=== PATIENT | male | born 1965 | race Caucasian/White ===

== ENCOUNTER 2020-07-24 11:52 | Inpatient (IN) ==
[2020-07-24] MEDS ORDERED: dexAMETHasone**PF** 10 MG/ML VIAL IV ONE (12:49)
[2020-07-24] MEDS ORDERED: ACETAMINOPHEN 1,000 MG/100 ML VIAL IV STA (12:49)
[2020-07-24] MEDS ORDERED: ALBUT/IPRATROP 3MG/0.5MG NEB 3 ML VIAL NEB STA (12:49)
[2020-07-24] MEDS ORDERED: SODIUM CHLORIDE 0.9% 1000ML 1,000 ML IV SCH (13:00)
--- NOTE | 2020-07-24 13:42 | XRay Report ---
XR chest 1V portable CLINICAL HISTORY: Cough. +Covid. Bibasilar crackles COMPARISON STUDY: 02/07/2010 FINDINGS: The heart is mildly enlarged. There are bilateral pulmonary airspace opacities consistent w ith a multifocal pneumonia. There are no pleural effusions.[ IMPRESSION: Bilateral pulmonary airspace opacities consistent with a multifocal pneumonia. ACT 112: Negative or not required by law. Electronically signed by: Alberto Chu M.D. 07/24/2020 1:40 PM
--- NOTE | 2020-07-24 14:25 | Emergency Department Note ---
History of Present Illness General Chief complaint: Shortness of Breath/Dyspnea Stated complaint: SOB, FEVER, COVID + ON 07-17-20 Time Seen by Provider: 07/24/20 12:29 History of Present Illness Maximum Pain Intensity: 0 This is a 54-year-old male presenting to the emergency department for evaluation of fever, cough, and shortness of breath worsening over the past few days. The patient was positive for COVID-19 on 07/17/2020. He feels like he is unable to breathe with any movement, especially with walking. The patient's is ill with similar symptoms and she is being admitted to this facility. The patient has been taking [id number] Advil and Tylenol for fever symptoms as well as Mucinex and Sudafed. His cough is worsening and he states that his pulse ox at home is usually in the low 90s, but will drop into the 70s with walking. The patient does have a history of hypertension but no other cardiopulmonary disease. He does not have any recent travel history. He rates his discomfort 8/10 with coughing. Home Medications Medication Instructions Recorded Confirmed Type allopurinol 300 mg PO DAILY 07/24/20 07/24/20 History benzonatate 100 mg PO TID PRN 07/24/20 07/24/20 History fluticasone propionate 2 spray INTRANASAL DAILY PRN 07/24/20 07/24/20 History lisinopril 10 mg PO DAILY 07/24/20 07/24/20 History Allergies Allergy/AdvReac Type Severity Reaction Status Date / Time aspirin AdvReac Unknown VOMITING Unverified 07/24/20 14:17 Past Med/Surg History Medical History (Updated 07/25/20 @ 12:45 by Sonu Harris PA-C) COVID-19 Positive test 07/17/2020 Gout Hypertension VELAZQUEZ (nonalcoholic steatohepatitis) Surgical History History of lithotripsy Family History Father Heart disease Social History Smoking Status: Never smoker Second Hand Exposure: No; Do You Dip or Chew Tobacco: No; Tobacco Cessation Education Requested by Patient: No Hx Alcohol Use: Yes Hx Substance Use: No Preferred Language: Macedonian Communication Ability: Effective Sports Trainer Required: No Beliefs That Will Affect Care: None Current Living Situation: Spouse Other Information That Helps Us Care for You: No Feels Safe at Home: Yes Safety Concerns: Feels Safe At This Time Assistive Devices: Oxygen - Continuous Review of Systems A total of 10 systems reviewed and were otherwise negative Physical Exam Vital Signs Vital Signs - 24 hr 07/24/20 13:40 07/24/20 14:09 07/24/20 14:15 Pulse Rate 86 Pulse Rate [Apical] 76 Pulse Rate [Exercises] Pulse Rate [Recovery] Pulse Rate [Resting] Pulse Rate from SpO2 Sensor 87 Respiratory Rate 18 33 H Respiratory Rate [Exercises] Respiratory Rate [Recovery] Respiratory Rate [Resting] Respiratory Effort / Characteristics Spontaneous Blood Pressure 148/72 H Blood Pressure Mean 97 Pulse Oximetry 93 93 92 Pulse Oximetry [Exercises] Pulse Oximetry [Recovery] Pulse Oximetry [Resting] Oxygen Delivery Method Room Air Room Air Oxygen Flow Rate 07/24/20 14:30 07/24/20 15:05 07/24/20 15:30 Pulse Rate 88 85 Pulse Rate [Apical] Pulse Rate [Exercises] 94 H Pulse Rate [Recovery] 80 Pulse Rate [Resting] 78 Pulse Rate from SpO2 Sensor 84 Respiratory Rate 25 H 27 H Respiratory Rate [Exercises] 28 H Respiratory Rate [Recovery] 24 Respiratory Rate [Resting] 20 Respiratory Effort / Characteristics Blood Pressure 136/84 Blood Pressure Mean 101 Pulse Oximetry 96 Pulse Oximetry [Exercises] 89 L Pulse Oximetry [Recovery] 94 Pulse Oximetry [Resting] 93 Oxygen Delivery Method Room Air Nasal Cannula Oxygen Flow Rate 2 VITALS: Vitals are noted on the nurse's note and reviewed by myself. Vital signs stable. GENERAL: Moderately ill-appearing, white male with notable dry cough. HEAD: Normocephalic atraumatic. NECK: Supple without nuchal rigidity. No lymphadenopathy. No thyromegaly. Cervical spine is nontender. HEART: Regular rate and rhythm without murmurs gallops or rubs. LUNGS: Diffuse wheezing and rhonchi throughout worse in the bibasilar regions ABDOMEN: Positive normal bowel sounds x 4. Soft, nontender, without masses or organomegaly. No guarding or rebound tenderness. MUSCULOSKELETAL: No muscle atrophy, erythema, or edema noted. Full range of motion in all extremities. NEURO: Patient was alert and oriented to person place and time. CN II through XII grossly intact. Course Administered Medications Allopurinol (Allopurinol 300 Mg Tab) 300 mg PO DAILY JEANNE Stop: 08/24/20 08:59 Last Admin: 07/25/20 09:38 Dose: 300 mg Documented by: [id number] Enoxaparin Sodium (Enoxaparin Inj 40 Mg/0.4 Ml Syr) 40 mg SQ Q12H JEANNE Stop: 08/23/20 19:59 Last Admin: 07/25/20 09:38 Dose: 40 mg Documented by: [id number] Admin: 07/24/20 21:09 Dose: 40 mg Documented by: [id number] Dexamethasone 6 mg/ Syringe 1.5 mls @ 1 mls/min IV DAILY JEANNE Stop: 08/04/20 08:59 Last Admin: 07/25/20 09:38 Dose: 1 mls/min Documented by: [id number] Lisinopril (Lisinopril 10 Mg Tab) 10 mg PO DAILY JEANNE Stop: 08/24/20 08:59 Last Admin: 07/25/20 09:38 Dose: 10 mg Documented by: [id number] Sodium Chloride (Sodium Chloride 0.9% 10ml Flush) 30 ml IV DAILY@2100 [facility] Stop: 07/28/20 21:01 Last Admin: 07/24/20 21:09 Dose: 30 ml Documented by: [id number] Discontinued Medications Albuterol (Albut/Ipratrop 3mg/0.5mg Neb 3 Ml Vial) 3 ml NEB NOW STA Stop: 07/24/20 12:50 Last Admin: 07/24/20 13:38 Dose: 3 ml Documented by: [id number] Dexamethasone Sodium Phosphate (DexamethasonePf 10 Mg/Ml Vial) 10 mg IV NOW ONE Stop: 07/24/20 12:50 Last Admin: 07/24/20 15:06 Dose: 10 mg Documented by: [id number] Sodium Chloride (Nss 1000ml) 1,000 mls @ 999 mls/hr IV .Q1H1M JEANNE Stop: 07/24/20 14:00 Last Infusion: 07/24/20 16:24 Dose: 0 mls/hr Documented by: [id number] Admin: 07/24/20 15:07 Dose: 999 mls/hr Documented by: [id number] Acetaminophen (Ofirmev) 1,000 mg in 100 mls @ 400 mls/hr IV NOW STA Stop: 07/24/20 13:03 Last Infusion: 07/24/20 15:30 Dose: 0 mls/hr Documented by: [id number] Admin: 07/24/20 15:06 Dose: 400 mls/hr Documented by: [id number] Remdesivir 200 mg/ Sodium (Chloride) 250 mls @ 125 mls/hr IV ONE STA; Protocol Stop: 07/24/20 18:40 Last Infusion: 07/24/20 21:11 Dose: 0 mls/hr Documented by: [id number] Admin: 07/24/20 18:18 Dose: 125 mls/hr Documented by: [id number] Medical Decision Making Differential Diagnosis Differential diagnosis: Etiologies such as viral syndrome, otitis, pharyngitis, pneumonia, influenza, meningitis, urinary tract infection, septic arthritis, soft tissue infectious process, intra-abdominal process, sepsis, bacteremia, as well as others were entertained. Laboratory Data Result diagrams: 07/25/20 06:53 07/25/20 06:53 Lab Results 07/24/20 07/24/20 07/24/20 Range/Units 14:15 14:15 14:41 WBC 5.82 (4.8-10.8) K/uL RBC 5.29 (4.7-6.1) M/uL Hgb 15.5 (14.0-18.0) g/dL Hct 44.0 (42-52) % MCV 83.2 (80-100) fL MCH 29.3 (25-34) pg MCHC 35.2 (32-36) g/dL RDW Std Deviation 39.1 (36.4-46.3) fL RDW Coeff of Thuy 13.0 (11.5-14.5) % Plt Count 235 (130-400) K/uL MPV 9.4 (7.4-10.4) fL Immature Gran % (Auto) 0.5 % Neut % (Auto) 71.8 % Lymph % (Auto) 13.6 % Gosper % (Auto) 13.7 % Eos % (Auto) 0.2 % Baso % (Auto) 0.2 % Neut # (Auto) 4.18 (1.4-6.5) K/uL Lymph # (Auto) 0.79 L (1.2-3.4) K/uL Gosper # (Auto) 0.80 H (0.11-0.59) K/uL Eos # (Auto) 0.01 (0-0.5) K/uL Baso # (Auto) 0.01 (0-0.2) K/uL Immature Gran # (Auto) 0.03 H (0.00-0.02) K/uL ESR (0-14) mm/hr D-Dimer (0-500) ug/L FEU Sodium (136-145) mmol/L Potassium (3.5-5.1) mmol/L Chloride (98-107) mmol/L Carbon Dioxide (21-32) mmol/L Anion Gap (3-11) BUN (7-18) mg/dl Creatinine (0.6-1.4) mg/dl Est Cr Clr Drug Dosing ml/min Est GFR ( Amer) Est GFR (Non-Af Amer) BUN/Creatinine Ratio (10-20) Glucose (70-99) mg/dl Calcium (8.5-10.1) mg/dl Total Bilirubin (0.2-1) mg/dl AST (15-37) U/L ALT (12-78) U/L Alkaline Phosphatase (45-117) U/L Troponin I (0-0.045) ng/ml C-Reactive Protein (0-0.29) mg/dl NT-Pro-B Natriuret Pep (0-900) pg/ml Total Protein (6.4-8.2) gm/dl Albumin (3.4-5.0) gm/dl Globulin (2.5-4.0) gm/dl Albumin/Globulin Ratio (0.9-2) Procalcitonin (0-0.5) ng/ml COVID-19 Eval Order CovFluRsv at [facility] SARS-CoV-2 (PCR) POSITIVE A* (Negative) Influenza Type A (PCR) Negative (Neg) Influenza Type B (PCR) Negative (Neg) RSV (RT-PCR) Negative (Neg) 07/24/20 07/24/20 07/24/20 Range/Units 14:41 14:41 14:41 WBC (4.8-10.8) K/uL RBC (4.7-6.1) M/uL Hgb (14.0-18.0) g/dL Hct (42-52) % MCV (80-100) fL MCH (25-34) pg MCHC (32-36) g/dL RDW Std Deviation (36.4-46.3) fL RDW Coeff of Thuy (11.5-14.5) % Plt Count (130-400) K/uL MPV (7.4-10.4) fL Immature Gran % (Auto) % Neut % (Auto) % Lymph % (Auto) % Gosper % (Auto) % Eos % (Auto) % Baso % (Auto) % Neut # (Auto) (1.4-6.5) K/uL Lymph # (Auto) (1.2-3.4) K/uL Gosper # (Auto) (0.11-0.59) K/uL Eos # (Auto) (0-0.5) K/uL Baso # (Auto) (0-0.2) K/uL Immature Gran # (Auto) (0.00-0.02) K/uL ESR (0-14) mm/hr D-Dimer 440 (0-500) ug/L FEU Sodium 133 L (136-145) mmol/L Potassium 4.1 (3.5-5.1) mmol/L Chloride 102 (98-107) mmol/L Carbon Dioxide 22 (21-32) mmol/L Anion Gap 9.0 (3-11) BUN 21 H (7-18) mg/dl Creatinine 1.11 (0.6-1.4) mg/dl Est Cr Clr Drug Dosing 97.8 ml/min Est GFR ( Amer) 87.4 Est GFR (Non-Af Amer) 75.4 BUN/Creatinine Ratio 18.8 (10-20) Glucose 101 H (70-99) mg/dl Calcium 8.2 L (8.5-10.1) mg/dl Total Bilirubin 0.7 (0.2-1) mg/dl AST 117 H (15-37) U/L ALT 233 H (12-78) U/L Alkaline Phosphatase 79 (45-117) U/L Troponin I < 0.015 (0-0.045) ng/ml C-Reactive Protein 2.93 H (0-0.29) mg/dl NT-Pro-B Natriuret Pep 6 (0-900) pg/ml Total Protein 7.4 (6.4-8.2) gm/dl Albumin 3.1 L (3.4-5.0) gm/dl Globulin 4.3 H (2.5-4.0) gm/dl Albumin/Globulin Ratio 0.7 L (0.9-2) Procalcitonin 0.07 (0-0.5) ng/ml COVID-19 Eval Order SARS-CoV-2 (PCR) (Negative) Influenza Type A (PCR) (Neg) Influenza Type B (PCR) (Neg) RSV (RT-PCR) (Neg) 07/24/20 Range/Units 14:41 WBC (4.8-10.8) K/uL RBC (4.7-6.1) M/uL Hgb (14.0-18.0) g/dL Hct (42-52) % MCV (80-100) fL MCH (25-34) pg MCHC (32-36) g/dL RDW Std Deviation (36.4-46.3) fL RDW Coeff of Thuy (11.5-14.5) % Plt Count (130-400) K/uL MPV (7.4-10.4) fL Immature Gran % (Auto) % Neut % (Auto) % Lymph % (Auto) % Gosper % (Auto) % Eos % (Auto) % Baso % (Auto) % Neut # (Auto) (1.4-6.5) K/uL Lymph # (Auto) (1.2-3.4) K/uL Gosper # (Auto) (0.11-0.59) K/uL Eos # (Auto) (0-0.5) K/uL Baso # (Auto) (0-0.2) K/uL Immature Gran # (Auto) (0.00-0.02) K/uL ESR 50 H (0-14) mm/hr D-Dimer (0-500) ug/L FEU Sodium (136-145) mmol/L Potassium (3.5-5.1) mmol/L Chloride (98-107) mmol/L Carbon Dioxide (21-32) mmol/L Anion Gap (3-11) BUN (7-18) mg/dl Creatinine (0.6-1.4) mg/dl Est Cr Clr Drug Dosing ml/min Est GFR ( Amer) Est GFR (Non-Af Amer) BUN/Creatinine Ratio (10-20) Glucose (70-99) mg/dl Calcium (8.5-10.1) mg/dl Total Bilirubin (0.2-1) mg/dl AST (15-37) U/L ALT (12-78) U/L Alkaline Phosphatase (45-117) U/L Troponin I (0-0.045) ng/ml C-Reactive Protein (0-0.29) mg/dl NT-Pro-B Natriuret Pep (0-900) pg/ml Total Protein (6.4-8.2) gm/dl Albumin (3.4-5.0) gm/dl Globulin (2.5-4.0) gm/dl Albumin/Globulin Ratio (0.9-2) Procalcitonin (0-0.5) ng/ml COVID-19 Eval Order SARS-CoV-2 (PCR) (Negative) Influenza Type A (PCR) (Neg) Influenza Type B (PCR) (Neg) RSV (RT-PCR) (Neg) Imaging Data Radiologist's Impression: Chest X-Ray 07/24/20 12:49 XR chest 1V portable CLINICAL HISTORY: Cough. +Covid. Bibasilar crackles COMPARISON STUDY: 02/07/2010 FINDINGS: The heart is mildly enlarged. There are bilateral pulmonary airspace opacities consistent with a multifocal pneumonia. There are no pleural effusions.[ IMPRESSION: Bilateral pulmonary airspace opacities consistent with a multifocal pneumonia. ACT 112: Negative or not required by law. Electronically signed by: Alberto Chu M.D. 07/24/2020 1:40 PM ECG Data Attestation: I personally reviewed and interpreted this ECG as follows: Indication: + SOB/dyspnea Additional Comments: Normal sinus rhythm @[address] elevation Normal ECG When compared with ECG of 07-FEB-2010 13:14, No significant change was found MDM Narrative Physical exam and history were performed. Nursing notes, EMR, and Medication List were personally reviewed. Patient appears to have respiratory difficulty secondary to COVID-19. The patient does have a recent positive diagnosis of this. He appears somewhat ill on exam but not toxic. IV access was established and labs were obtained. Ambulatory pulse ox was performed and he did desaturate to 89%. He was placed on 2 L nasal cannula. The patient was given IV fluids, IV Tylenol, IV Decadron, and a DuoNeb. The patient's blood work is as above and was reviewed. He does not have a significantly elevated white blood cell count, gross anemia, or significant electrolyte imbalance. Troponin x1 is negative. Procalcitonin is normal. Urine is without gross evidence of infection. Covid is positive here today. X- ray was reviewed by myself and radiology and does show signs consistent with a viral pneumonia. Transaminases are elevated from an unknown source. Overall the patient does not appear well for discharge home. The case was discussed with the on-call hospitalist team who agreed to evaluate him here in the ER. Please see their dictation for further patient course, plan, and disposition. The chart was completed utilizing [employer] Speech Voice Recognition Software. Grammatical errors, random word insertions, pronoun errors, and incomplete sentences are an occasional consequence of this system due to software limitations, ambient noise, and hardware issues. Any formal questions or concerns about the content, text, or information contained within the body of this dictation should be directly addressed to the provider for clarification. . Impression & Plan Acute respiratory failure with hypoxia, Pneumonia due to COVID-19 virus, Trans aminitis Discharge Plan Visit Data Chief Complaint: Shortness of Breath/Dyspnea Stated Complaint: SOB, FEVER, COVID + ON 07-17-20 ED Provider: Shadi Quintero ED Midlevel Provider: Sonu Harris Discharge Problem: Acute respiratory failure with hypoxia, Pneumonia due to COVID-19 virus, Transaminitis Patient Disposition: Admitted As Inpatient Discharge Instructions Interventions: ED Discharge Assessment Last Done: 07/24/20 18:09
[2020-07-24 14:58] LABS: Basophils # (auto) 0.01 K/uL (0-0.2); Basophils % (auto) 0.2 %; Eosinophils # (auto) 0.01 K/uL (0-0.5); Eosinophils % (auto) 0.2 %; Hemoglobin 15.5 g/dL (14.0-18.0); Immature Granulocytes # (auto) 0.03 K/uL (0.00-0.02); Immature Granulocytes % (auto) 0.5 %; Lymphocytes # (auto) 0.79 K/uL (1.2-3.4); Lymphocytes % (auto) 13.6 %; Mean Corpuscular Hemoglobin 29.3 pg (25-34); Mean Corpuscular Hgb Conc 35.2 g/dL (32-36); Mean Corpuscular Volume 83.2 fL (80-100); Mean Platelet Volume 9.4 fL (7.4-10.4); Monocytes % (auto) 13.7 %; Neutrophils # (auto) 4.18 K/uL (1.4-6.5); Neutrophils % (auto) 71.8 %; Platelet Count 235 K/uL (130-400); RDW Standard Deviation 39.1 fL (36.4-46.3); Red Blood Count 5.29 M/uL (4.7-6.1); White Blood Count 5.82 K/uL (4.8-10.8)
--- NOTE | 2020-07-24 15:10 | Electrocardiogram Report ---
Test Reason : Blood Pressure : / mmHG Vent. Rate : 082 BPM Atrial Rate : 082 BPM P-R Int : 148 ms QRS Dur : 102 ms QT Int : 372 ms P-R-T Axes : 052 004 023 degrees QTc Int : 434 ms Normal sinus rhythm Normal ECG When compared with ECG of 07-FEB-2010 13:14, No significant change was found Confirmed by Santhosh Melchor ([id number]) on 07/24/2020 3:10:09 PM Referred By: REFERRED SELF Confirmed By:Santhosh Melchor
[2020-07-24 15:15] LABS: Alanine Aminotransferase 233 U/L (12-78); Albumin Level 3.1 gm/dl (3.4-5.0); Aspartate Aminotransferase 117 U/L (15-37); BUN Creatinine Ratio 18.8 (10-20); Blood Urea Nitrogen 21 mg/dl (7-18); Calcium 8.2 mg/dl (8.5-10.1); Carbon Dioxide 22 mmol/L (21-32); Chloride 102 mmol/L (98-107); Creatinine Clr Calc Pharmacy 97.8 ml/min; Est GFR (African American) 87.4; Est GFR (Non-African American) 75.4; Glucose 101 mg/dl (70-99); Potassium 4.1 mmol/L (3.5-5.1); Sodium 133 mmol/L (136-145)
[2020-07-24 15:20] LABS: Albumin Globulin Ratio 0.7 (0.9-2); Alkaline Phosphatase 79 U/L (45-117); Bilirubin,Total 0.7 mg/dl (0.2-1); Globulin 4.3 gm/dl (2.5-4.0); NT Pro B Type Natriuretic Pept 6 pg/ml (0-900); Total Protein 7.4 gm/dl (6.4-8.2); Troponin I < 0.015 ng/ml (0-0.045)
[2020-07-24 15:32] LABS: Influenza A virus by PCR Negative (Neg); Influenza B virus by PCR Negative (Neg); RSV by PCR Negative (Neg)
--- NOTE | 2020-07-24 16:05 | History & Physical Report ---
Date of Service July 24, 2020 Assessment & Plan (1) Acute respiratory failure with hypoxia: (2) Pneumonia due to COVID-19 virus: This is a 54-year-old male with PMH of hypertension, history of fatty liver disease and recent diagnosis of COVID-19 on 07/17/2020 and other medical problems below who presents with cough and worsening dyspnea on exertion and was found to have acute respiratory failure with hypoxia in setting of Covid pneumonia. Covid + on 07/17, has since developed cough and dyspnea on exertion Hypoxic at 89% on room air, improved to 96% on 2L NC No leukocytosis, ESR 50, d-dimer 440, AST 117, ALT 233, CRP 2.93, procal negative. Flu A/B, RSV negative Given IV dexamethasone 6mg in ED, plan to continue daily Ordered 5 day course of Remdesivir- AST/ALT elevated in setting of fatty liver disease but less than 10x limit, so indicated for covid treatment Plan to monitor LFTs daily Continue supplemental O2, prone as needed, isolation precautions, albuterol inhaler PRN (3) Transaminitis: Remote diagnosis of fatty liver disease. Most recent LFTs normal from 2011 Has not been seen by GI service in the past per records Elevated in setting of infection. Continue to monitor closely (4) Hypertension: Continue lisinopril DVT Ppx: SQ Lovenox Q12H Code status: FULL PCP: Munir Dispo: Admitted to PCU. Plan to return home once medically stable. Patient seen in collaboration with Dr. Hamilton. Please see addendum. History of Present Illness Chief Complaint: Cough, dyspnea on exertion Primary Care Provider: Evens devine MD This is a 54-year-old male with PMH of hypertension, history of fatty liver disease and recent diagnosis of COVID-19 on 07/17/2020 and other medical problems below who presents with cough and worsening dyspnea on exertion. Patient first developed fever last Friday and was found to be Covid positive when tested 2 days later on 07/17. Has been quarantining along with , who is also Covid positive. Fever broke by 07/19. Initially had fever, chills and decreased appetite along with loss of taste. Over the past few days, patient has developed a productive cough with clear/white mucus as well as significant dyspnea exertion. This is much different than patient's baseline, as he is normally active and not oxygen requiring. Denies any headache, chest pain, nausea, vomiting, abdominal pain, dysuria or constipation. States he is urinating less frequently although trying to drink enough fluids. Had diarrhea last week which is since resolved. Allergies Allergy/AdvReac Type Severity Reaction Status Date / Time aspirin AdvReac Unknown VOMITING Unverified 07/24/20 14:17 Home Medications Medication Instructions Recorded Confirmed Type allopurinol 300 mg PO DAILY 07/24/20 07/24/20 History benzonatate 100 mg PO TID PRN 07/24/20 07/24/20 History fluticasone propionate 2 spray INTRANASAL DAILY PRN 07/24/20 07/24/20 History lisinopril 10 mg PO DAILY 07/24/20 07/24/20 History Past Med/Surg History Medical History (Updated 07/24/20 @ 16:15 by Roxie Page PA-C) COVID-19 Positive test 07/17/2020 Gout Hypertension VELAZQUEZ (nonalcoholic steatohepatitis) Surgical History History of lithotripsy Family History Father Heart disease Social History Smoking Status: Never smoker Preferred Language: Cymro Feels Safe at Home: Yes Review of Systems Review of Systems: At least ten systems reviewed and negative except as noted in the HPI. Physical Exam Physical Exam: Please see Dr. Hamilton's addendum for physical exam details. Results & Data Results & Data ([facility]) Vital Signs (Past 12 Hours) Vital Signs Temp Pulse Pulse Pulse Pulse Pulse Resp 07/24/20 15:30 85 27 H 07/24/20 15:05 94 H 80 78 07/24/20 14:30 88 25 H 07/24/20 14:15 07/24/20 14:09 86 33 H 07/24/20 13:40 76 18 07/24/20 12:13 07/24/20 12:00 36.7 C 95 H 20 Resp Resp Resp BP Pulse Ox Pulse Ox Pulse Ox 07/24/20 15:30 96 07/24/20 15:05 28 H 24 20 89 L 94 04/05/21 14:30 136/84 07/24/20 14:15 92 07/24/20 14:09 148/72 H 93 07/24/20 13:40 93 07/24/20 12:13 96 07/24/20 12:00 118/79 95 Pulse Ox 07/24/20 15:30 07/24/20 15:05 93 07/24/20 14:30 07/24/20 14:15 07/24/20 14:09 07/24/20 13:40 07/24/20 12:13 07/24/20 12:00 Laboratory Results Short CBC 07/24/20 Range/Units 14:41 WBC 5.82 (4.8-10.8) K/uL Hgb 15.5 (14.0-18.0) g/dL Hct 44.0 (42-52) % Plt Count 235 (130-400) K/uL BMP 07/24/20 14:41 Sodium 133 L Potassium 4.1 Chloride 102 Carbon Dioxide 22 BUN 21 H Creatinine 1.11 Glucose 101 H Calcium 8.2 L Cardiac Enzymes 07/24/20 Range/Units 14:41 Troponin I < 0.015 (0-0.045) ng/ml Liver Function 07/24/20 Range/Units 14:41 Total Bilirubin 0.7 (0.2-1) mg/dl AST 117 H (15-37) U/L ALT 233 H (12-78) U/L Alkaline Phosphatase 79 (45-117) U/L Albumin 3.1 L (3.4-5.0) gm/dl Diagnostic Findings CXR: IMPRESSION: Bilateral pulmonary airspace opacities consistent with a multifocal pneumonia. ECG Rhythm: normal sinus Change: no significant change Code Status & VTE Plan VTE Prophylaxis Plan VTE Prophylaxis will be ordered: Yes Supervising Physician Co-Signing Physician Notes Physical Exam Gen-AAO x 3, NAD, Afebrile Head-NCAT, EOMI, PERRLA, Anicteric Sclera, No Posterior Pharyngeal Erythema Neck-Supple, No JVD, No Thyromegaly, No Masses, No LAD, No Bruits Lungs-Clear to Auscultation Bilaterally, No Rales, No Rhonchi, No Wheezing, No Crepitus Chest-No S4, +S1, +S2, No S3, No Murmurs, No Rubs, No Gallops, No Ectopy Abdomen-Soft, Bowel Sounds Present, Non Tender, Non Distended, No Hepatomegaly, No Splenomegaly, No Palpable Masses, No Rebound, No Rigidity, No Guarding Musculoskeletal-Full Range of Motion Bilaterally, No CVAT Extremities-No Cyanosis, No Clubbing, No Edema Nuero-Cranial Nerves II-XII grossly intact, Motor WNL, DTRs WNL, Strength WNL, Non Focal Psych-Normal Mood
[2020-07-24 16:06] LABS: SARS CoV2 RNA(COVID-19) InHosp POSITIVE (Negative)
[2020-07-24 16:22] LABS: D Dimer 440 ug/L FEU (0-500)
[2020-07-24 16:25] LABS: C Reactive Protein 2.93 mg/dl (0-0.29)
[2020-07-24] MEDS ORDERED: REMDESIVIR 200 MG in SODIUM CHLORIDE 0.9% 210 ML IV STA (16:41)
[2020-07-24] MEDS ORDERED: BENZONATATE 100 MG CAPSULE PO PRN (16:41)
[2020-07-24] MEDS ORDERED: ONDANSETRON INJ 2 MG/ML 2 ML VIAL IV PRN (18:21)
[2020-07-24] MEDS ORDERED: FLUTICASONE PROPIONATE NA SPR 16 GM BTL NAE PRN (18:21)
[2020-07-24] MEDS ORDERED: POLYETHYLENE (MIRALAX) 17 GM PACK PO PRN (18:21)
[2020-07-24] MEDS ORDERED: ACETAMINOPHEN 325 MG TAB PO PRN (18:21)
[2020-07-24] MEDS ORDERED: ALBUTEROL HFA 8 GM INHALER INH PRN (18:21)
[2020-07-24] MEDS: SODIUM CHLORIDE 0.9% 10ML FLUSH IV SCH (21:09)
[2020-07-24] MEDS: ENOXAPARIN INJ 40 MG/0.4 ML SYR SQ SCH (21:09)
[2020-07-25 04:28] LABS: Appearance Urine Cloudy (Clear); Bacteria Urine Automated Negative (Negative); Bilirubin Urine Negative (Negative); Blood Urine Negative (Negative); Color Urine Dark Yellow; Glucose Urine UA Negative (Negative); Ketones Urine Trace (Negative); Leukocyte Esterase Urine Negative (Negative); Nitrite Urine Negative (Negative); Protein Urine Negative (Negative); RBC Urine Automated 0-4 /hpf (0-4); Specific Gravity Urine 1.024 (1.000-1.030); Urobilinogen Urine Negative (Negative)
[2020-07-25 07:32] LABS: Hematocrit (blood only) 40.3 % (42-52); Hemoglobin 14.3 g/dL (14.0-18.0); Mean Corpuscular Hemoglobin 29.5 pg (25-34); Mean Corpuscular Hgb Conc 35.5 g/dL (32-36); Mean Corpuscular Volume 83.1 fL (80-100); Mean Platelet Volume 9.7 fL (7.4-10.4); Platelet Count 256 K/uL (130-400); RDW Standard Deviation 38.8 fL (36.4-46.3); Red Blood Count 4.85 M/uL (4.7-6.1); White Blood Count 4.34 K/uL (4.8-10.8)
[2020-07-25 08:08] LABS: Albumin Level 2.7 gm/dl (3.4-5.0); BUN Creatinine Ratio 25.6 (10-20); Calcium 8.7 mg/dl (8.5-10.1); Creatinine Clr Calc Pharmacy 129.1 ml/min; Est GFR (African American) 115.9; Potassium 4.2 mmol/L (3.5-5.1)
[2020-07-25 08:11] LABS: Albumin Globulin Ratio 0.7 (0.9-2); Bilirubin,Total 0.6 mg/dl (0.2-1); Globulin 3.9 gm/dl (2.5-4.0); Total Protein 6.6 gm/dl (6.4-8.2)
[2020-07-25] MEDS: ENOXAPARIN INJ 40 MG/0.4 ML SYR SQ SCH ×2 (09:38→20:23)
[2020-07-25] MEDS: allopurinoL 300 MG TAB PO SCH (09:38)
[2020-07-25] MEDS: dexAMETHasone 6 MG in SYRINGE 0 ML IV SCH (09:38)
[2020-07-25] MEDS: lisinopril 10 MG TAB PO SCH (09:38)
--- NOTE | 2020-07-25 10:06 | Hospitalist Progress Note ---
Date of Service July 25, 2020 Assessment & Plan (1) Acute respiratory failure with hypoxia: (2) Pneumonia due to COVID-19 virus: This is a 54-year-old male with PMH of hypertension, history of fatty liver disease and recent diagnosis of COVID-19 on 07/17/2020 and other medical problems below who presents with cough and worsening dyspnea on exertion and was found to have acute respiratory failure with hypoxia in setting of Covid pneumonia. CXR-Bilateral pulmonary airspace opacities consistent with a multifocal pneumonia. Covid + on 07/17, has since developed cough and dyspnea on exertion Hypoxic at 89% on room air, improved to 96% on 2L NC No leukocytosis, ESR 50, d-dimer 440, AST 117, ALT 233, CRP 2.93, procal negative. Flu A/B, RSV negative Given IV dexamethasone 6mg in ED, plan to continue daily Ordered 5 day course of Remdesivir- AST/ALT elevated in setting of fatty liver disease but less than 10x limit, so indicated for covid treatment, LFTs are improved today, monitor LFTs daily Continue supplemental O2, prone as needed, isolation precautions, albuterol inhaler PRN (3) Transaminitis: Remote diagnosis of fatty liver disease. Most recent LFTs normal from 2012 Has not been seen by GI service in the past per records Elevated in setting of infection. Continue to monitor closely, improving (4) Hypertension: Continue lisinopril DVT Ppx: SQ Lovenox Q12H Code status: FULL PCP: Munir Dispo: PCU. Plan to return home once medically stable. also admitted to PCU Labs Checked ROS-No Headache, No Visual Changes, No Nausea, No Vomiting, No Fever, No Chills, No Neck Pain or Stiffness, No Chest Pain, No Palpitations, No SOB, No PANDYA, No Cough, No Sputum, No Wheezing, No Abdominal Pain, No Diarrhea, No Hematemesis, No Hemoptysis, No Unexpected Weight Loss, No Flank pain, No Melena, No Hematochezia, No Frequency, No Urgency, No Burning, No Hematuria, No Rashes, No Diaphoresis. Appetite is Normal Physical Exam Gen-AAO x 3, NAD, Afebrile Head-NCAT, EOMI, PERRLA, Anicteric Sclera, No Posterior Pharyngeal Erythema Neck-Supple, No JVD, No Thyromegaly, No Masses, No LAD, No Bruits Lungs-Rales Bilaterally in the bases, No Rhonchi, No Wheezing, No Crepitus Chest-No S4, +S1, +S2, No S3, No Murmurs, No Rubs, No Gallops, No Ectopy Abdomen-Soft, Bowel Sounds Present, Non Tender, Non Distended, No Hepatomegaly, No Splenomegaly, No Palpable Masses, No Rebound, No Rigidity, No Guarding Musculoskeletal-Full Range of Motion Bilaterally, No CVAT Extremities-No Cyanosis, No Clubbing, No Edema Nuero-Cranial Nerves II-XII grossly intact, Motor WNL, DTRs WNL, Strength WNL, Non Focal Psych-Normal Mood Admission and Anticipated Discharge Date Admission Date: July 24, 2020 Results & Data Results & Data ([facility]) Vital Signs (Past 12 Hours) Vital Signs Temp Pulse Pulse Pulse Resp BP BP 07/25/20 08:00 36.6 C 71 16 143/79 H 07/25/20 04:07 36.4 C L 69 16 130/83 07/25/20 01:24 85 07/24/20 23:01 36.8 C 72 18 117/85 Pulse Ox 07/25/20 08:00 91 07/25/20 04:07 95 07/25/20 01:24 07/24/20 23:01 93
[2020-07-25] MEDS: REMDESIVIR 100 MG in SODIUM CHLORIDE 0.9% 230 ML IV SCH (20:23)
[2020-07-25] MEDS: SODIUM CHLORIDE 0.9% 10ML FLUSH IV SCH (20:23)
[2020-07-26 07:34] LABS: Hematocrit (blood only) 41.1 % (42-52); Hemoglobin 14.2 g/dL (14.0-18.0); Mean Corpuscular Hemoglobin 29.2 pg (25-34); Mean Corpuscular Hgb Conc 34.5 g/dL (32-36); Mean Corpuscular Volume 84.4 fL (80-100); Platelet Count 277 K/uL (130-400); RDW Coefficient of Variation 12.9 % (11.5-14.5); RDW Standard Deviation 39.1 fL (36.4-46.3); Red Blood Count 4.87 M/uL (4.7-6.1); White Blood Count 7.09 K/uL (4.8-10.8)
[2020-07-26 07:57] LABS: Albumin Level 2.8 gm/dl (3.4-5.0); BUN Creatinine Ratio 24.9 (10-20); Bilirubin,Total 0.6 mg/dl (0.2-1); Calcium 8.9 mg/dl (8.5-10.1); Creatinine Clr Calc Pharmacy 116.6 ml/min; Est GFR (African American) 108.2; Est GFR (Non-African American) 93.4; Potassium 3.9 mmol/L (3.5-5.1)
[2020-07-26 07:58] LABS: Albumin Globulin Ratio 0.7 (0.9-2); Globulin 3.8 gm/dl (2.5-4.0); Total Protein 6.6 gm/dl (6.4-8.2)
[2020-07-26] MEDS: dexAMETHasone 6 MG in SYRINGE 0 ML IV SCH (08:40)
[2020-07-26] MEDS: ENOXAPARIN INJ 40 MG/0.4 ML SYR SQ SCH ×2 (08:40→20:01)
[2020-07-26] MEDS: lisinopril 10 MG TAB PO SCH (08:44)
[2020-07-26] MEDS: allopurinoL 300 MG TAB PO SCH (08:44)
--- NOTE | 2020-07-26 11:21 | Hospitalist Progress Note ---
Date of Service July 26, 2020 Assessment & Plan (1) Acute respiratory failure with hypoxia: (2) Pneumonia due to COVID-19 virus: Patient is 54-year-old male with past medical history of hypertension, fatty liver disease and recent diagnosis of COVID-19 on 07/17 presented to the ED with worsening shortness of breath and cough. Patient was found to be in acute hypoxic respiratory failure in the setting of Covid pneumonia. Patient remains on 2 L of nasal cannula. We will attempt to wean it off. X-ray revealed bilateral pulmonary airspace opacities consistent with multifocal pneumonia Remains afebrile overnight. Hemodynamically patient is stable. Currently WBC of 7. ESR 50, d-dimer 440, AST 117, ALT 233, CRP 2.93, procal negative on admission Continue Decadron 6 mg daily. Continue with remdesivir Continue supplemental O2, prone as needed, isolation precautions, albuterol inhaler PRN. (3) Transaminitis: Diagnosis of fatty liver disease. AST 117 on admission, today at 43. ALT of 233 on admission, today at 162. Continue to monitor daily LFTs. (4) Hypertension: Continue lisinopril. Blood pressure remains controlled. DVT Ppx: SQ Lovenox Q12H Code status: FULL PCP: Munir Dispo: PCU. Plan to return home once medically stable. also admitted to PCU. Admission and Anticipated Discharge Date Admission Date: July 24, 2020 Subjective Overnight patient was on 2 L of nasal cannula and remains on it. Reports shortness of breath is about the same. Denies any significant cough. Denies any fever chills or diaphoresis. Denies any chest pain, abdominal pain, diarrhea or dysuria rest of the review of system is negative. Lives with who is also admitted on the same floor. Review of Systems Review of Systems: All systems reviewed & are unremarkable except as noted in HPI & below Physical Exam Physical Exam: General: A&Ox3 HENT: NCAT, MMM, EOMI Eyes: PERRLA Neck: Supple, normal range of motion CVS: normal rate and rhythm Resp: b/l decrease breath sounds Abdomen: Soft, ND/NT, +BS Extremities: No c/c/e Neuro: face symmetric, no gross focal deficits appreciated Skin: warm and dry, no rashes/lesions/errythema MSK: normal ROM, no joint swelling/erythema Results & Data Results & Data ([facility]) Vital Signs (Past 12 Hours) Vital Signs Temp Pulse Resp BP Pulse Ox 07/26/20 10:55 36.8 C 65 16 129/62 94 07/26/20 07:56 36.7 C 69 18 119/69 95 07/26/20 04:15 36.4 C L 65 16 117/72 94
[2020-07-26] MEDS: REMDESIVIR 100 MG in SODIUM CHLORIDE 0.9% 230 ML IV SCH (20:00)
[2020-07-26] MEDS: SODIUM CHLORIDE 0.9% 10ML FLUSH IV SCH (21:16)
[2020-07-27] MEDS: lisinopril 10 MG TAB PO SCH (08:13)
[2020-07-27] MEDS: ENOXAPARIN INJ 40 MG/0.4 ML SYR SQ SCH (08:13)
[2020-07-27] MEDS: allopurinoL 300 MG TAB PO SCH (08:14)
[2020-07-27 08:46] LABS: Basophils # (auto) 0.01 K/uL (0-0.2); Basophils % (auto) 0.1 %; Eosinophils # (auto) 0.13 K/uL (0-0.5); Eosinophils % (auto) 1.7 %; Hematocrit (blood only) 42.1 % (42-52); Hemoglobin 14.5 g/dL (14.0-18.0); Immature Granulocytes # (auto) 0.06 K/uL (0.00-0.02); Immature Granulocytes % (auto) 0.8 %; Lymphocytes # (auto) 1.61 K/uL (1.2-3.4); Lymphocytes % (auto) 21.1 %; Mean Corpuscular Hemoglobin 29.1 pg (25-34); Mean Corpuscular Hgb Conc 34.4 g/dL (32-36); Mean Corpuscular Volume 84.4 fL (80-100); Mean Platelet Volume 9.3 fL (7.4-10.4); Monocytes # (auto) 0.96 K/uL (0.11-0.59); Monocytes % (auto) 12.6 %; Neutrophils # (auto) 4.85 K/uL (1.4-6.5); Neutrophils % (auto) 63.7 %; Platelet Count 266 K/uL (130-400); RDW Standard Deviation 39.4 fL (36.4-46.3); Red Blood Count 4.99 M/uL (4.7-6.1); White Blood Count 7.62 K/uL (4.8-10.8)
[2020-07-27] MEDS: dexAMETHasone 6 MG in SYRINGE 0 ML IV SCH (09:20)
[2020-07-27 09:23] LABS: Albumin Level 2.9 gm/dl (3.4-5.0); Calcium 8.7 mg/dl (8.5-10.1); Creatinine Clr Calc Pharmacy 109.9 ml/min; Est GFR (African American) 100.4; Est GFR (Non-African American) 86.6; Potassium 3.9 mmol/L (3.5-5.1)
[2020-07-27 09:26] LABS: Albumin Globulin Ratio 0.8 (0.9-2); Bilirubin,Total 0.5 mg/dl (0.2-1); Globulin 3.5 gm/dl (2.5-4.0); Total Protein 6.4 gm/dl (6.4-8.2)
[2020-07-27] MEDS ORDERED: Nursing to Pharmacy Communication SCH (10:00)
[2020-07-27] MEDS: REMDESIVIR 100 MG in SODIUM CHLORIDE 0.9% 230 ML IV SCH (10:55)
--- NOTE | 2020-07-27 11:24 | Discharge Summary ---
Date of Service July 27, 2020 Admission HPI Per Admitting Provider This is a 54-year-old male with PMH of hypertension, history of fatty liver disease and recent diagnosis of COVID-19 on 07/17/2020 and other medical problems below who presents with cough and worsening dyspnea on exertion. Patient first developed fever last Friday and was found to be Covid positive when tested 2 days later on 07/17. Has been quarantining along with , who is also Covid positive. Fever broke by 07/19. Initially had fever, chills and decreased appetite along with loss of taste. Over the past few days, patient has developed a productive cough with clear/white mucus as well as significant dysp ekaterina exertion. This is much different than patient's baseline, as he is normally active and not oxygen requiring. Denies any headache, chest pain, nausea, vomiting, abdominal pain, dysuria or constipation. States he is urinating less frequently although trying to drink enough fluids. Had diarrhea last week which is since resolved. Admission Exam Per Admitting Provider Gen-AAO x 3, NAD, Afebrile Head-NCAT, EOMI, PERRLA, Anicteric Sclera, No Posterior Pharyngeal Erythema Neck-Supple, No JVD, No Thyromegaly, No Masses, No LAD, No Bruits Lungs-Clear to Auscultation Bilaterally, No Rales, No Rhonchi, No Wheezing, No Crepitus Chest-No S4, +S1, +S2, No S3, No Murmurs, No Rubs, No Gallops, No Ectopy Abdomen-Soft, Bowel Sounds Present, Non Tender, Non Distended, No Hepatomegaly, No Splenomegaly, No Palpable Masses, No Rebound, No Rigidity, No Guarding Musculoskeletal-Full Range of Motion Bilaterally, No CVAT Extremities-No Cyanosis, No Clubbing, No Edema Nuero-Cranial Nerves II-XII grossly intact, Motor WNL, DTRs WNL, Strength WNL, Non Focal Psych-Normal Mood Principal Diagnosis (1) Acute respiratory failure with hypoxia: (2) Pneumonia due to COVID-19 virus: Discharge Exam General: A&Ox3 HENT: NCAT, MMM, EOMI Eyes: PERRLA Neck: Supple, normal range of motion CVS: normal rate and rhythm Resp: b/l decrease breath sounds Abdomen: Soft, ND/NT, +BS Extremities: No c/c/e Neuro: face symmetric, no gross focal deficits appreciated Skin: warm and dry, no rashes/lesions/errythema MSK: normal ROM, no joint swelling/erythema Discharge Data Allergies Allergy/AdvReac Type Severity Reaction Status Date / Time aspirin AdvReac Unknown VOMITING Unverified 07/24/20 14:17 Consultations 07/24/20 15:28 ED Decision to Admit Stat Hospital Course (1) Acute respiratory failure with hypoxia: (2) Pneumonia due to COVID-19 virus: Patient is 54-year-old male with past medical history of hypertension, fatty liver disease and recent diagnosis of COVID-19 on 07/17 presented to the ED with worsening shortness of breath and cough. Patient was found to be in acute hypoxic respiratory failure in the setting of Covid pneumonia. X-ray revealed bilateral pulmonary airspace opacities consistent with multifocal pneumonia. Patient was treated with a course of steroids and remdesivir. Prior to discharge patient was on room air he was on room air overnight. Step was also performed and he did not require any oxygen. Day of discharge patient was hemodynamically stable have any major complaints. He denies any shortness of breath or any significant complaints. Patient was discharged in stable conditi on. (3) Transaminitis: Diagnosis of fatty liver disease. Continue to follow-up LFTs as an outpatient. Pneumonitis improved prior to discharge, but needs outpatient monitoring. (4) Hypertension: Continue lisinopril. Blood pressure remains controlled. Total Time Total Time Spent Total Time Spent (In Minutes): 35 Discharge Plan Discharge Items Patient Disposition: Home - Self-Care Reason For Visit: COVID pna, Acute hypoxic resp failure Activity: Resume your previous activity Non-emergency contact: Primary Care Provider Call non-emergency contact if: your symptoms worsen Follow-up/Referrals: Evens Amaral MD [Primary Care Provider] - Diet: Regular Addtl Attending Provider Instructions: Follow-up with your primary care physician within 1 week. Your test for COVID-19 came back as positive, which means you are infected with the novel coronavirus. We need to continue the following important precautions: Quarantine yourself in your home until: you have had no fever for at least 24 hours (that is 1 full day of no fever without the use of medicine that reduces fevers) AND other symptoms have improved (for example, when your cough or shortness of breath have improved) AND at least 10 days have passed since your symptoms first appeared. If you live with others, isolate yourself to a single room away from them and avoid any contact during the quarantine time. Wash your hands frequently and cover your cough. Pending Studies at Discharge: No Stand-Alone Forms: [facility], Smoking Cessation Medications and DC Order Prescriptions: Continued benzonatate 100 mg capsule 100 mg PO TID PRN (Reason: Cough) RF: 0 lisinopril 10 mg tablet 10 mg PO DAILY RF: 0 allopurinol 300 mg tablet 300 mg PO DAILY RF: 0 fluticasone propionate 50 mcg/actuation spray,suspension 2 spray INTRANASAL DAILY PRN (Reason: Allergy Symptoms) RF: 0 Discharge Orders: Discharge Order (Routine); Ordered 07/27/20 Ordered By: Will Robles Admission Data Admit Date/Time: 07/24/20 15:50 Attending Provider: Will Robles Admit Provider: Jet Hamilton Primary Care Provider: Evens Amaral Other Providers: Jet Hamilton
[2020-07-27] MEDS: SODIUM CHLORIDE 0.9% 10ML FLUSH IV SCH (12:07)
== END 2020-07-27 13:04 | disposition home or self-care (01) | DRG 177 ==
LOC: ED 11:52 → SUATTDRO 15:50 → 2E 15:50